=== PATIENT | male | born 1965 | race Two or more races ===

== ENCOUNTER → 2017-03-22 | Outpatient (REF) | payer OTHER | LOC: M SMT 16:54 | PROVIDERS: ATTEND Nurse Practitioner Family | DX: R39.9 Unspecified symptoms and signs involving the genitourinary system (principal) ==

== ENCOUNTER → 2021-08-15 | Outpatient (REF) ==
--- NOTE | 2021-08-15 14:23 | REP ---
INDICATION: PAIN. COMPARISON: None TECHNIQUE: Three views FINDINGS: There is moderate disc space narrowing at C5-6 and C6-7 were anterior and posterior osteophytic ridging is the heaviest. The facet joints appear to be well aligned bilaterally. Degenerative facet and uncovertebral joint changes are seen mildly at every level bilaterally. Vertebral body height and alignment appears to be within normal limits. IMPRESSION: Chronic changes seen on this limited exam as described above. <Electronically signed by Naveed Richardson > 08/15/21 [id number]
--- NOTE | 2021-08-15 14:30 | REP ---
INDICATION: PAIN. COMPARISON: None TECHNIQUE: AP and lateral views FINDINGS: There is mild to moderate disc space narrowing seen at every level but particularly and near universally at L4-5. the remainder of the disc spaces are narrowed particularly posteriorly. Marginal osteophytosis is seen at T11-12 bilaterally which appears near fused possibly even representing syndesmophyte formation. The pedicles are intact bilaterally. Vertebral body height is within normal limits throughout. There are multiple calcifications in the right upper quadrant consistent with cholelithiasis. IMPRESSION: Chronic changes seen on this limited exam as described above. <Electronically signed by Naveed Richardson > 08/15/21 [id number]
== END ==
LOC: M PLAIMG 10:36
PROVIDERS: ATTEND Internal Medicine
DX: Z00.00 Encounter for general adult medical examination without abnormal findings (principal)

== ENCOUNTER 2023-09-09 11:49 | Emergency (ER) | payer MEDICAID, OTHER ==
[~2023-09-09] VITALS: Ht 185.4 cm; Wt 81.8 kg
[~2023-09-09 11:49] MED LIST: AMLO1TAB25; AMLO1TAB25 PO; ASPI81CH49; CYMB1CAP5 PO; DULO-34; DULO-34 PO; Dimethicone TOP; FARX1TAB3; FARX1TAB3 PO; FLOM0.4C39 PO; INSUDET SC; LANTINJ4 SC; LISI40TA4; LISI40TA4 PO; OMEP40CA5; OMEP40CA5 PO; TAMS1CAP17
[2023-09-09 13:18] LABS: HEMATOCRIT 42.7 % (42.0-52.0); HEMOGLOBIN 14.2 g/dl (13.5-17.5); MEAN CORPUSCULAR HEMOGLOBIN 29.6 pg (27.0-33.0); MEAN CORPUSCULAR HGB CONC 33.3 g/dl (32.0-36.5); PLATELET COUNT, AUTOMATED 248 10^3/uL (150-450); WHITE BLOOD COUNT 11.1 10^3/uL (4.0-10.0)
[2023-09-09 13:41] LABS: AMPHETAMINES LEVEL URINE NEGATIVE (NEGATIVE); BARBITURATES URINE NEGATIVE (NEGATIVE); BENZODIAZEPINES URINE NEGATIVE (NEGATIVE); CANNABINOIDS URINE NEGATIVE (NEGATIVE); COCAINE METABOLITE URINE NEGATIVE (NEGATIVE); METHADONE URINE NEGATIVE (NEGATIVE); OPIATES URINE NEGATIVE (NEGATIVE); PHENCYCLIDINE URINE NEGATIVE (NEGATIVE)
[2023-09-09 13:46] LABS: ETHYL ALCOHOL (ETHANOL) < 0.003 % (0.000-0.010)
[2023-09-09 13:47] LABS: SALICYLATE LEVEL < 3.0 MG/DL (<30)
[2023-09-09 13:48] LABS: ALKALINE PHOSPHATASE 78 U/L (46-116); ALT/SGPT 70 U/L (7.0-40); AST/SGOT 32 U/L (<34); BILIRUBIN,DIRECT 0.2 MG/DL (<0.4); BILIRUBIN,TOTAL 0.5 MG/DL (0.3-1.2); BLOOD UREA NITROGEN 35 MG/DL (9-23); CALCIUM LEVEL 10.1 MG/DL (8.5-10.1); CARBON DIOXIDE LEVEL 29 MMOL/L (20-31); CHLORIDE LEVEL 102 MMOL/L (98-107); CREATININE FOR GFR 1.12 MG/DL (0.70-1.30); GLOMERULAR FILTRATION RATE > 60.0 (>56); GLUCOSE, FASTING 248 MG/DL (60-100); SODIUM LEVEL 138 MMOL/L (136-145); TOTAL PROTEIN 7.9 G/DL (5.7-8.2)
[2023-09-09] MEDS ORDERED: HOME MED LIST COMPLETE! XX SCH ×2 (14:30→15:15)
[2023-09-09] MEDS ORDERED: INSUDET SC (15:14)
[2023-09-09] MEDS ORDERED: EZET10TA21 PO (15:14)
[2023-09-09] MEDS ORDERED: LEVEMIR (INSULIN DETEMIR) 1 UNITS/0.01ML SC ONE (15:50)
[2023-09-09] MEDS ORDERED: GLUCAGON INJ 1MG VIAL SC PRN (15:55)
[2023-09-09] MEDS ORDERED: DEXTROSE 50% 50ML SYRINGE IV PRN (15:55)
[2023-09-09] MEDS ORDERED: GLUCOSE 4GM CHEW TABLET PO PRN (15:55)
[2023-09-09] MEDS ORDERED: INSULIN LISPRO (NovoLOG) PER UNIT SC SCH (17:30)
[2023-09-09 19:34] VITALS: BP 119/60; TEMP 98.9; O2SAT 98
[2023-09-10] MEDS ORDERED: lisinopriL 40MG TAB PO SCH (09:00)
[2023-09-10] MEDS ORDERED: OMEPRAZOLE 20MG CAP PO SCH (09:00)
[2023-09-10] MEDS ORDERED: EZETIMIBE 10MG TABLET (ZETIA) PO SCH (09:00)
[2023-09-10] MEDS ORDERED: DAPAGLIFLOZIN PROPANEDIOL 10MG TABLET (FARXIGA) PO SCH (09:00)
[2023-09-10] MEDS ORDERED: LEVEMIR (INSULIN DETEMIR) 1 UNITS/0.01ML SC SCH (09:00)
== END 2023-09-09 20:20 | disposition home or self-care (01) ==
LOC: M ED 11:49
DX: F43.0 Acute stress reaction (principal); E11.9 Type 2 diabetes mellitus without complications; I10 Essential (primary) hypertension; Z86.73 Personal history of transient ischemic attack (TIA), and cerebral infarction without residual deficits; Z95.1 Presence of aortocoronary bypass graft; K21.9 Gastro-esophageal reflux disease without esophagitis; I25.2 Old myocardial infarction; F17.200 Nicotine dependence, unspecified, uncomplicated; Z79.899 Other long term (current) drug therapy
CPT/HCPCS: 80048; 80076; 80143; 80307; 82077; 84443; 85027; 87635; 99284; J1815

== ENCOUNTER → 2023-11-27 | Outpatient (REF) | payer OTHER ==
[~2023-11-27] MED LIST changes: +EZET10TA21 PO
[2023-11-27 17:35] LABS: CREATININE, URINE 72.6 MG/DL
[2023-11-27 17:50] LABS: MAU/CREAT RATIO 2462.8 MCG/MG (0.0-30.0)
== END ==
LOC: M LAB REF 15:41
PROVIDERS: ATTEND Nurse Practitioner Family
DX: E11.65 Type 2 diabetes mellitus with hyperglycemia (principal)